=== PATIENT | female | born 1960 | race African-American/Black ===

== ENCOUNTER 2016-05-18 15:13 | Emergency (ER) | payer MEDICARE, OTHER ==
[~2016-05-18 15:13] MED LIST: ALPR1TAB6 PO; BUPR150T11 PO; CYCL10TA2 PO; ESCI10TA PO; FLUT1DIS3 INH; METO50TA2 PO; NAPR220T70 PO; OXYC10TA PO; OXYC15TA PO; PIRO20CA2 PO; QUET300T5 PO; RANI150T6 PO; TRAM100T2 PO; TRAM50TA PO
[2016-05-18 15:19] VITALS: BP 163/95
--- NOTE | 2016-05-18 15:32 | PHYS DOC ---
Past Medical History Past Medical History: Arthritis Additional Past Medical Histor: chronic pain, Past Surgical History: Other Additional Past Surgical Histo: r hip, r foot orthopaedic, r knee Additional Information: 1 ppd Alcohol Use: Occasionally Drug Use: Opiates Adult General Chief Complaint Chief Complaint: PAIN CONTROL [facility] HPI Patient is a 55 year old female who presents emergency room today with a complaint of exacerbation of her chronic back pain over the past 2-1/2-3 days. Patient has a well-established history of being opiate reliant for management of her back pain. She does see the headache and pain Center at [facility]. She states that she's been attempting to find a new pain management doctor in this area as is becoming more difficult for her to drive to [place]. She denies any radiation of pain, loss of bowel or bladder control. She denies any recent injuries. Patient states that she takes 15 mg of oxycodone every 8-10 hours to manage her pain. She states that this is typical for her. States that she felt the need to double her medication yesterday for pain management, but realized that she may have some bad effects due to the pain medicines so she begin taking Aleve. Review of Systems Review of Systems Constitutional: Denies fever or chills [] Eyes: Denies change in visual acuity, redness, or eye pain [] HENT: Denies nasal congestion or sore throat [] Respiratory: Denies cough or shortness of breath [] Cardiovascular: No additional information not addressed in HPI [] GI: Denies abdominal pain, nausea, vomiting, bloody stools or diarrhea [] : Denies dysuria or hematuria [] Musculoskeletal: Denies back pain or joint pain [] Integument: Denies rash or skin lesions [] Neurologic: Denies headache, focal weakness or sensory changes [] Endocrine: Denies polyuria or polydipsia [] Current Medications Current Medications Current Medications Medications (Trade) Dose Ordered Sig/Ang Start Time Stop Time Status Last Admin Dose Admin Morphine Sulfate 10 mg 1X ONCE 05/18/16 16:15 05/18/16 16:16 DC 05/18/16 16:15 10 MG Allergies Allergies Allergies Coded Allergies Type Severity Reaction Last Updated Verified Penicillins Allergy Intermediate rash 01/30/16 Yes acetaminophen Allergy Intermediate 01/30/16 Yes Physical Exam Physical Exam Constitutional: Well developed, well nourished, no acute distress, non-toxic appearance. [] HENT: Normocephalic, atraumatic, bilateral external ears normal, oropharynx moist, no oral exudates, nose normal. [] Eyes: PERRLA, EOMI, conjunctiva normal, no discharge. [] Neck: Normal range of motion, no tenderness, supple, no stridor. [] Cardiovascular:Heart rate regular rhythm, no murmur [] Lungs & Thorax: Bilateral breath sounds clear to auscultation [] Abdomen: Bowel sounds normal, soft, no tenderness, no masses, no pulsatile masses. [] Skin: Warm, dry, no erythema, no rash. [] Back: Reports nonradiating low back pain. Extremities: No tenderness, no cyanosis, no clubbing, ROM intact, no edema. [] Neurologic: Denies saddle anesthesia or incontinence of urine and bowel. Psychologic: Affect normal, judgement normal, mood normal. [] Current Patient Data Vital Signs Vital Signs Date Time Temp Pulse Resp B/P Pulse Ox O2 Delivery O2 Flow Rate FiO2 05/18/16 16:15 18 96 Room Air 05/18/16 15:19 98.0 88 98.0 EKG EKG [] Radiology/Procedures Radiology/Procedures [] Course & Med Decision Making Course & Med Decision Making Patient reports that she had a friend drop her off. The emergency department. I advised the patient that when she has a verifiable ride here in the emergency department, then I would order the pain medication for her to receive. Patient's ride did present to the emergency department. Patient received IM morphine, 10 mg. She was observed for a short period of time to chart no adverse reaction and then was released with her adult accompaniment. Dragon Disclaimer Dragon Disclaimer This electronic medical record was generated, in whole or in part, using a voice recognition dictation system. Departure Departure Impression: Primary Impression: Acute exacerbation of chronic low back pain Disposition: 01 HOME, SELF-CARE Condition: GOOD Referrals: NO PCP (PCP) Patient Instructions: Chronic Back Pain Additional Instructions: 1. Continue taking your routine pain medication as prescribed. 2. The pamphlet is provided to you that does have a pain management doctor's phone number and it. You may choose to call that office in the morning to schedule an appointment with this new pain management provider. PRINCE SENA May 18, 2016 15:32
[2016-05-18] MEDS ORDERED: MORPHINE SULFATE 10 MG/ML VIAL. IM ONE (16:15)
== END 2016-05-18 16:40 | disposition home or self-care (01) ==
LOC: ER 15:13
DX: G89.29 Other chronic pain (principal); M54.5 Low back pain; M19.90 Unspecified osteoarthritis, unspecified site; F11.10 Opioid abuse, uncomplicated; Z88.0 Allergy status to penicillin; Z88.6 Allergy status to analgesic agent
CPT/HCPCS: 96372; 99283; J2270

== ENCOUNTER 2016-07-04 23:06 | Emergency (ER) | payer MEDICARE ==
[2016-07-04 23:18] VITALS: BP 122/80
[2016-07-04] MEDS ORDERED: MORPHINE SULFATE 10 MG/ML VIAL. IM ONE (23:45)
--- NOTE | 2016-07-05 00:03 | PHYS DOC ---
Past Medical History Past Medical History: Arthritis Additional Past Medical Histor: chronic back pain, neuropathy Past Surgical History: Other Additional Past Surgical Histo: r hip, r foot orthopaedic, r knee Alcohol Use: Occasionally Drug Use: Opiates Adult General Chief Complaint Chief Complaint: LOWER BACK PAIN OR INJURY [facility] HPI Patient is a 55 year old female presents emergency Department today with a well -established history of chronic back pain. Patient states that she's been experiencing an acute exacerbation of the pain without injury. Patient has had numerous low back surgeries in the past. She was seen in the headache and pain Center for pain management. Patient was actually here May 18. I am the provider that saw her at that time. Patient states that she did not establish a new pain management doctor's I instructed her to do at that time. Review of Systems Review of Systems Constitutional: Denies fever or chills [] Eyes: Denies change in visual acuity, redness, or eye pain [] HENT: Denies nasal congestion or sore throat [] Respiratory: Denies cough or shortness of breath [] Cardiovascular: No additional information not addressed in HPI [] GI: Denies abdominal pain, nausea, vomiting, bloody stools or diarrhea [] : Denies dysuria or hematuria [] Musculoskeletal: Denies back pain or joint pain [] Integument: Denies rash or skin lesions [] Neurologic: Denies headache, focal weakness or sensory changes [] Endocrine: Denies polyuria or polydipsia [] Current Medications Current Medications Current Medications Medications (Trade) Dose Ordered Sig/Ang Start Time Stop Time Status Last Admin Dose Admin Morphine Sulfate 10 mg 1X ONCE 07/04/16 23:45 07/04/16 23:46 DC 07/04/16 23:56 10 MG Allergies Allergies Allergies Coded Allergies Type Severity Reaction Last Updated Verified Penicillins Allergy Intermediate rash 01/30/16 Yes acetaminophen Allergy Intermediate 01/30/16 Yes Physical Exam Physical Exam Constitutional: Well developed, well nourished, no acute distress, non-toxic appearance. [] HENT: Normocephalic, atraumatic, bilateral external ears normal, oropharynx moist, no oral exudates, nose normal. [] Eyes: PERRLA, EOMI, conjunctiva normal, no discharge. [] Neck: Normal range of motion, no tenderness, supple, no stridor. [] Cardiovascular:Heart rate regular rhythm, no murmur [] Lungs & Thorax: Bilateral breath sounds clear to auscultation [] Abdomen: Bowel sounds normal, soft, no tenderness, no masses, no pulsatile masses. [] Skin: Warm, dry, no erythema, no rash. [] Back: Back is normal in appearance and the exception of multiple surgical scars. There is callaway-tenderness to the patient's lower back, particularly at the level of L3-L5. There is no palpable defect, deformity or abnormality. There is no active spasm. Extremities: No tenderness, no cyanosis, no clubbing, ROM intact, no edema. [] Neurologic: Alert and oriented X 3, normal motor function, normal sensory function, no focal deficits noted. [] Psychologic: Affect normal, judgement normal, mood normal. [] Current Patient Data Vital Signs Vital Signs Date Time Temp Pulse Resp B/P Pulse Ox O2 Delivery O2 Flow Rate FiO2 07/04/16 23:56 Room Air 07/04/16 23:18 92 16 100 EKG EKG [] Radiology/Procedures Radiology/Procedures [] Course & Med Decision Making Course & Med Decision Making Pertinent Labs and Imaging studies reviewed. (See chart for details) [] Dragon Disclaimer Dragon Disclaimer This electronic medical record was generated, in whole or in part, using a voice recognition dictation system. Departure Departure Impression: Primary Impression: Acute exacerbation of chronic low back pain Disposition: 01 HOME, SELF-CARE Condition: IMPROVED Referrals: UNKNOWN PCP NAME (PCP) Patient Instructions: Chronic Back Pain Additional Instructions: 1. Take your routine medications at home as prescribed. 2. As we previously discussed on May 18, there are other pain management options to you. A pamphlet is provided to you again to assist in finding a new pain management doctor. PRINCE SENA Jul 05, 2016 00:03
== END 2016-07-05 00:24 | disposition home or self-care (01) ==
LOC: ER 23:06
DX: G89.29 Other chronic pain (principal); M54.5 Low back pain; M19.90 Unspecified osteoarthritis, unspecified site; G62.9 Polyneuropathy, unspecified; F11.10 Opioid abuse, uncomplicated; Z88.8 Allergy status to other drugs, medicaments and biological substances; Z88.0 Allergy status to penicillin
CPT/HCPCS: 96372; 99283; J2270

== ENCOUNTER 2016-08-03 14:37 | Emergency (ER) | payer MEDICARE, OTHER ==
[~2016-08-03] VITALS: Ht 167.6 cm; Wt 66.7 kg
[2016-08-03 15:17] VITALS: BP 118/72
[2016-08-03] MEDS ORDERED: methylPREDNISolone SOD SUCC PF 125 MG/2 ML VIAL. IM ONE (15:30)
[2016-08-03] MEDS ORDERED: KETOROLAC TROMETHAMINE 60 MG/2 ML SYRINGE. IM ONE (15:30)
--- NOTE | 2016-08-03 15:36 | PHYS DOC ---
Past Medical History Past Medical History: Arthritis Additional Past Medical Histor: chronic back pain, neuropathy Past Surgical History: Other Additional Past Surgical Histo: r hip, r foot orthopaedic, r knee Alcohol Use: Occasionally Drug Use: Opiates Adult General Chief Complaint Chief Complaint: LOWER BACK PAIN OR INJURY [facility] HPI Patient is a 55 year old who presents emergency department stating that she is having right back pain. She states that this is been occurring for the last few days. She states that she took early yesterday with no relief. She states that she did not try the medication again today because there was no relief yesterday. She denies any numbness or tingling into her hands. She does state she has a history of neuropathy. Patient was able to ambulate into the emergency department with a good steady gait. She denies any incontinence of bowel or urine. Patient states that she had been seeing a pain management clinic and of particular was released. She states she has not obtained a new pain management physician at this time. Patient was seen here in May and June for the same back pain and discomfort. Review of Systems Review of Systems Constitutional: Denies fever or chills [] Eyes: Denies change in visual acuity, redness, or eye pain [] HENT: Denies nasal congestion or sore throat [] Respiratory: Denies cough or shortness of breath [] Cardiovascular: No additional information not addressed in HPI [] GI: Denies abdominal pain, nausea, vomiting, bloody stools or diarrhea [] : Denies dysuria or hematuria [] Musculoskeletal: back pain denies joint pain [] Integument: Denies rash or skin lesions [] Neurologic: Denies headache, focal weakness or sensory changes [] Allergies Allergies Allergies Coded Allergies Type Severity Reaction Last Updated Verified Penicillins Allergy Intermediate rash 01/30/16 Yes acetaminophen Allergy Intermediate 01/30/16 Yes Physical Exam Physical Exam Constitutional: Well developed, well nourished, no acute distress, non-toxic appearance. [] HENT: Normocephalic, atraumatic, bilateral external ears normal, oropharynx moist, no oral exudates, nose normal. [] Eyes: PERRLA, EOMI, conjunctiva normal, no discharge. [] Neck: Normal range of motion, no tenderness, supple, no stridor. [] Cardiovascular:Heart rate regular rhythm, no murmur [] Lungs & Thorax: Bilateral breath sounds clear to auscultation [] Skin: Warm, dry, no erythema, no rash. [] Back: No thoracic or lumbar spine tenderness, no step-offs or deformities noted , no crepitus. Extremities: No tenderness, no cyanosis, no clubbing, ROM intact, no edema. Patient able to complete straight legs raises without difficulty, patient was able to cross legs without difficulty. Neurologic: Alert and oriented X 3, normal motor function, normal sensory function, no focal deficits noted. [] Psychologic: Affect normal, judgement normal, mood normal. [] Current Patient Data Vital Signs Vital Signs Date Time Temp Pulse Resp B/P Pulse Ox O2 Delivery O2 Flow Rate FiO2 08/03/16 15:17 98.3 85 18 118/72 100 Room Air 98.3 EKG EKG [] Radiology/Procedures Radiology/Procedures [] Course & Med Decision Making Course & Med Decision Making Pertinent Labs and Imaging studies reviewed. (See chart for details) Patient will be provided with Solumedrol and Toradol here in the emergency department. She will be discharged home in stable condition. Recommended patient to continue with the aleve at home. Recommended she followup with pain management. She will be given information for followup. Patient was provided with signs and symptoms to return to emergency department was provided. Patient agrees with discharge instructions, treatment regimen and followup recommendations. [] Dragon Disclaimer Dragon Disclaimer This electronic medical record was generated, in whole or in part, using a voice recognition dictation system. Departure Departure Impression: Primary Impression: Acute exacerbation of chronic low back pain Disposition: HOME, SELF-CARE Condition: STABLE Referrals: KENNY ORTEGA (PCP) Patient Instructions: Chronic Back Pain Additional Instructions: Activity as tolerated Continue to take your Aleve at home as prescribed by manufacture Followup with pain management for further evaluation Return to emergency department as needed. ROES GOTTI APRN Aug 03, 2016 15:36
== END 2016-08-03 16:00 | disposition home or self-care (01) ==
LOC: ER 14:37
DX: G89.29 Other chronic pain (principal); M54.5 Low back pain; M19.90 Unspecified osteoarthritis, unspecified site; G62.9 Polyneuropathy, unspecified; F11.10 Opioid abuse, uncomplicated; Z98.890 Other specified postprocedural states; Z88.0 Allergy status to penicillin; Z88.6 Allergy status to analgesic agent
CPT/HCPCS: 96372; 99284; J1885; J2930